=== PATIENT | female | born 1995 | race Caucasian/White ===

== ENCOUNTER 2017-10-20 10:56 | Outpatient (CLI) | payer OTHER ==
[2017-10-20] MEDS ORDERED: LR 1,000 ML IV (12:30)
== END 2017-10-20 12:41 | disposition home or self-care (01) ==
LOC: M LDO 10:56
DX: O99.89 Other specified diseases and conditions complicating pregnancy, childbirth and the puerperium (principal); Z3A.23 23 weeks gestation of pregnancy; R11.2 Nausea with vomiting, unspecified; R06.02 Shortness of breath
CPT/HCPCS: 96365

== ENCOUNTER 2018-02-06 18:55 | Outpatient (CLI) | payer OTHER | END 2018-02-06 20:54 | disposition home or self-care (01) | LOC: M LDO 18:55 | DX: O99.89 Other specified diseases and conditions complicating pregnancy, childbirth and the puerperium (principal); Z3A.38 38 weeks gestation of pregnancy; R51 Headache; R11.0 Nausea | CPT/HCPCS: 59025 ==

== ENCOUNTER 2018-05-25 22:11 | Emergency (ER) | payer OTHER ==
[2018-05-25] MEDS: diphenhydrAMINE INJ 50MG/ML VIAL (J1200) IV (22:28)
[2018-05-25] MEDS: METOCLOPRAMIDE INJ 10MG/2ML VIAL (J2765) IV (22:30)
[2018-05-25] MEDS: KETOROLAC 30 MG/ML VIAL (J1885) IV (22:30)
[2018-05-25] MEDS: NS 1,000 ML IV (22:30)
== END 2018-05-25 23:40 | disposition home or self-care (01) ==
LOC: M ED 22:11
DX: G43.909 Migraine, unspecified, not intractable, without status migrainosus (principal); Z91.018 Allergy to other foods
CPT/HCPCS: J1200